=== PATIENT | male | born 1975 | race Caucasian/White ===

== ENCOUNTER 2019-08-28 02:02 | Emergency (ER) | payer BC, SELFPAY ==
[2019-08-28 02:06] VITALS: BP 153/96; PULSE 80; RESP 18; TEMP 36.6; O2SAT 98; BMI 33.9
--- NOTE | 2019-08-28 02:08 | ED_ITS ---
Entered by Janet Lofton, acting as scribe for Kerry Helton MD HPI - Abdominal Pain General: Chief Complaint: Abdominal Pain Stated Complaint: ABD PAIN Time Seen by Provider: 08/28/19 02:07 Source: patient Mode of arrival: ambulatory Limitations: no limitations History of Present Illness: HPI narrative: 43 yo m came to the er pov with for abd pain. Onset was last night. Pt states that he has had some ulcers and deverticulitis is the past. Pt is having pain right above the belly button. Pt said that it feels like that he needs to burp and that he needs to have a bowel movement as well. Pt denies any nausea or vomiting at this time. MD elicited complaint: abdominal pain Pertinent past history: diverticulitis and other (ulcers) Onset (ago): day(s) (last night) Pain Consistency: constant Location: Epigastric Severity: moderate Quality: sharp Radiation: none Migration to: no migration Relieving factors: nothing Associated Symptoms: Reports no associated symptoms and nausea; Denies chills, diarrhea, dysuria, fever(s) and vomiting Related Data: Patient : No Review of Systems General: Reports: other (negative unless marked) Const: Denies: fever, chills, body aches or change in appetite Eyes: Denies: blurry vision or eye discomfort ENMT: Denies: throat pain or dental pain Card: Denies: chest pain Resp: Denies: shortness of breath GI: Reports: abdominal pain and nausea; Denies: vomiting or diarrhea : Denies: painful urination Musc: Denies: neck pain or back pain Skin/Breast: Denies: rash Neuro: Denies: headache Psych: Denies: depression Master/Lymph: Denies: easy bruising All/Imm: Denies: hives PFSH ED PFSH: Social History Smoking and tobacco status: former smoker Physical Exam Const: COMMON NORMALS: no apparent distress, oriented x3 and healthy appearing HENMT: COMMON NORMALS: normocephalic and head/scalp atraumatic HEAD & SCALP: normocephalic and atraumatic Eye: COMMON NORMALS: PERRL and EOMs intact bilaterally PUPIL: Yes PERRL Neck/C-Spine: COMMON NORMALS: full ROM and supple Chest: COMMONS NORMALS: inspection of chest normal and palpation of chest normal Resp: COMMON NORMALS: normal respiratory effort, no retractions, no use of accessory muscles and clear to auscultation bilaterally AUSCULTATION: clear to auscultation bilaterally Cardio: COMMON NORMALS: regular rate, regular rhythm and no murmurs RATE: regular rate RHYTHM: regular rhythm GI: COMMON NORMALS: normal to inspection, nondistended, normoactive bowel sounds, soft to palpation, non-tender and no masses PALPATION: Yes soft Extremity: COMMON NORMALS: normal to inspection and full ROM Neuro: COMMON NORMALS: oriented x3, moves all extremities and no focal motor deficits Psych: COMMON NORMALS: mental status grossly normal, thought process normal and cooperative THOUGHT PROCESS: normal thought process Skin: COMMON NORMALS: no rashes or lesions noted and no wounds GENERAL SKIN EXAM: no rashes or lesions noted Course Vital Signs: Vital signs: Vital Signs Temperature 97.9 F 08/28/19 02:06 Pulse Rate 80 08/28/19 02:06 Respiratory Rate 18 08/28/19 03:22 Blood Pressure 153/96 08/28/19 02:06 Pulse Oximetry 98 08/28/19 02:06 MDM - Abdominal Pain MDM Narrative: Medical decision making narrative: Patient presents with gallstones likely causing abdominal pain. He has no signs of cholecystitis on ultrasound. Patient's lab work here is normal as well. His pain is since resolved and he has no right upper quadrant tenderness. Patient is stable for discharge and is to follow-up with surgeon in 3 to 5 days. He is return if worsening. Lab Data: Labs: Lab Results 08/28/19 08/28/19 Range/Units 02:10 02:10 WBC 8.9 (4.0-10.0) 10^3/ uL RBC 5.22 (4.1-5.3) 10^6/u L Hgb 16.3 (11.7-16.6) g/dL Hct 47.3 (42.0-52.0) % MCV 90.6 (80-94) fL MCH 31.2 (28.0-34.0) pg MCHC 34.5 (30.0-36.0) g/dL RDW 12.9 (12.1-15.1) % Plt Count 204 (130-400) 10^3/c mm MPV 10.8 H (7.4-10.4) fL Neut % (Auto) 43.8 % Lymph % (Auto) 44.7 % [place] % (Auto) 8.0 % Eos % (Auto) 2.4 % Baso % (Auto) 0.9 % Neut # (Auto) 3.9 (1.8-7.7) 10^3/u L Lymph # (Auto) 4.0 (0.8-4.8) 10^3/u L [place] # (Auto) 0.7 (0.2-0.9) 10^3/u L Eos # (Auto) 0.2 (0.0-0.8) 10^3/u L Baso # (Auto) 0.1 (0.0-0.1) 10^3/u L Nucleated RBC % (a uto) 0 % Nucleated RBCs # 0.0 /100WBC Sodium 139 (136-145) mmol/L Potassium 3.7 (3.5-5.1) mmol/L Chloride 101 (98-107) mmol/L Carbon Dioxide 28 (22-29) mmol/L Anion Gap 13.7 (5-19) BUN 16 (6-20) mg/dL Creatinine 1.2 (0.7-1.2) mg/dL GFR Calculation 65.8 L (90-130) mL/min Glucose 107 (65-115) mg/dL Calculated Osmolal ity 285 (285-295) mOsm/k g Calcium 10.1 (8.5-10.5) mg/dL Total Bilirubin 0.7 (0.15-1.2) mg/dL AST 47 H (0-40) U/L ALT 38 (0-41) U/L Alkaline Phosphata se 49 (40-130) IU/L Total Protein 7.8 (6.6-8.7) g/dL Albumin 4.7 (3.5-5.2) g/dL Globulin 3.1 (1.3-4.6) g/dL Lipase 60 (13-60) U/L Imaging Data ^: CT Abd/Pel: Radiologist's impression: CT Scan Report Signed Patient: Adán Segal Unit #: [id number] : 1975 Age/Sex: 43 / M ADM Date: 08/28/19 Loc: ER Room/Bed: Attending Dr: Ordering Provider/Ordering MD: Kerry Helton MD Date of Service: 08/28/19 Procedure(s): CT abdomen pelvis w con* [id number] Accession Number(s): [id number] Report Number: [id number] PROCEDURE INFORMATION: Exam: CT Abdomen And Pelvis With Contrast Exam date and time: 08/28/2019 3:15 AM Age: 43 years old Clinical indication: Abdominal pain; Epigastric; Additional info: Abd pain TECHNIQUE: Imaging protocol: Computed tomography of the abdomen and pelvis with intravenous contrast. Total DLP: 1710.84 mGy-cm Radiation optimization: All CT scans at this facility use at least one of these dose optimization techniques: automated exposure control; mA and/or kV adjustment per patient size (includes targeted exams where dose is matched to clinical indication); or iterative reconstruction. Contrast material: OMNI 300; Contrast volume: 95 ml; Contrast route: 18G; COMPARISON: US gall bladder [id number] 05/30/2017 7:19 AM FINDINGS: Lungs: There are several noncalcified nodules in the right lung base measuring up to 6 mm. Liver: The liver is normal. Gallbladder and bile ducts: The gallbladder is elongated. There is a large radiolucent stone in the distal gallbladder lumen, similar to the findings on ultrasound in 2017. There is thickening and mucosal hyperenhancement of the gallbladder fundus beyond the stone. Pancreas: Click biliary The pancreas is unremarkable. Spleen: The spleen is mildly enlarged. Adrenals: The adrenal glands are unremarkable. Kidneys and ureters: There is a nonobstructive stone in the right kidney. There is no hydronephrosis or ureteral dilation. The left kidney and ureter are unremarkable. Stomach and bowel: The stomach is unremarkable. The small bowel is nondilated. There is no sign of inflammation. The colon is unremarkable. The stomach is unremarkable. The small bowel is nondilated. There is no sign of inflammation. The colon is unremarkable. Appendix: The appendix is normal. The appendix is normal. The appendix is normal. Intraperitoneal space: There is no free air or significant intraperitoneal free fluid. Vasculature: There is mild aortic atherosclerotic disease. There is mild aortic atherosclerotic disease. Lymph nodes: There is no lymphadenopathy in the retroperitoneum, mesentery, pelvis or inguinal regions. There is no lymphadenopathy in the retroperitoneum, mesentery, pelvis or inguinal regions. Bladder: The urinary bladder is unremarkable. Reproductive: The prostate and seminal vesicles are unremarkable. Bones/joints: Bones are unremarkable. Soft tissues: The abdominal wall is intact. CT/CT abdomen pelvis w con* [id number] IMPRESSION: 1. Cholelithiasis with thickening of the gallbladder fundal wall. Possible chronic cholecystitis or adenomyomatosis. Recommend ultrasound follow-up. 2. Nonobstructive right nephrolithiasis. 3. Right lower lobe pulmonary nodules measuring up to 6 mm. For patients at low risk (minimal or absent history of smoking and of other known risk factors), no routine follow-up is indicated. For patients at high risk (history of smoking or of other known risk factors), consider optional CT at 12 months. (Tenzin et al., Fleischner Society, 2017) gb: My impression: Gallstones with no signs of cholecystitis Discharge Plan Discharge Patient Disposition: Home, Self-Care Clinical Impression: Gall stones Condition: Stable Prescriptions: [place] 5-325 mg tablet 1 tab PO Q6H PRN (Reason: pain) Qty: 14 RF: 0 Zofran 4 mg tablet 4 mg PO QID PRN (Reason: nausea and vomiting) Qty: 14 RF: 0 Discharge Orders: Discharge Order (Routine); Ordered 08/28/19 Ordered By: Kerry Helton Referrals: Giancarlo Johns MD [Physician] - Discharge Diet: Advance as tolerated Discharge Activity: Resume usual activity Patient Instructions: Biliary Colic (ED) Coding Level of Care Code ED Quality Specialist for [facility] Fwd The documentation recorded by the Rolly conway Stephanie Lyn, accurately reflects the service I personally performed and the decisions made by Sunitha vogel Korby, MD Aug 28, 2019 02:02
[2019-08-28] MEDS: ondansetron 2 mg/ML SDV 2 mL 4 MG IVP (02:16)
[2019-08-28] MEDS: lidocaine 2% viscous 15 ML, aluminum-mag hydrox-simethicon 30 ML, sucralfate oral liq 1 GM PO (02:21)
[2019-08-28 02:47] LABS: Basophils # 0.1 10^3/uL (0.0-0.1); Basophils % 0.9 %; Eosinophils # 0.2 10^3/uL (0.0-0.8); Eosinophils % 2.4 %; Hematocrit 47.3 % (42.0-52.0); Hemoglobin 16.3 g/dL (11.7-16.6); Lymphocytes % 44.7 %; Mean Corpuscular HGB Conc 34.5 g/dL (30.0-36.0); Mean Corpuscular Hemoglobin 31.2 pg (28.0-34.0); Mean Corpuscular Volume 90.6 fL (80-94); Mean Platelet Volume 10.8 fL (7.4-10.4); Monocytes # 0.7 10^3/uL (0.2-0.9); Neutrophils # 3.9 10^3/uL (1.8-7.7); Neutrophils % 43.8 %; Nucleated Red Blood Cells % 0 %; Platelet Count 204 10^3/cmm (130-400); Red Blood Count 5.22 10^6/uL (4.1-5.3); Red Cell Distribution Width 12.9 % (12.1-15.1); White Blood Count 8.9 10^3/uL (4.0-10.0)
[2019-08-28 03:01] LABS: Alanine Aminotransferase 38 U/L (0-41); Albumin Level 4.7 g/dL (3.5-5.2); Alkaline Phosphatase 49 IU/L (40-130); Anion Gap 13.7 (5-19); Aspartate Amino Transferase 47 U/L (0-40); Blood Urea Nitrogen 16 mg/dL (6-20); Calcium 10.1 mg/dL (8.5-10.5); Carbon Dioxide 28 mmol/L (22-29); Chloride 101 mmol/L (98-107); Globulin 3.1 g/dL (1.3-4.6); Glomerular Filtration Rate 65.8 mL/min (90-130); Glucose 107 mg/dL (65-115); Lipase 60 U/L (13-60); Osmolality Calculated 285 mOsm/kg (285-295); Potassium 3.7 mmol/L (3.5-5.1); Sodium 139 mmol/L (136-145); Total Bilirubin 0.7 mg/dL (0.15-1.2); Total Protein 7.8 g/dL (6.6-8.7)
--- NOTE | 2019-08-28 03:06 | CTR_ITS ---
PROCEDURE INFORMATION: Exam: CT Abdomen And Pelvis With Contrast Exam date and time: 08/28/2019 3:15 AM Age: 43 years old Clinical indication: Abdominal pain; Epigastric; Additional info: Abd pain TECHNIQUE: Imaging protocol: Computed tomography of the abdomen and pelvis with intravenous contrast. Total DLP: 1710.84 mGy-cm Radiation optimization: All CT scans at this facility use at least one of these dose optimization techniques: automated exposure control; mA and/or kV adjustment per patient size (includes targeted exams where dose is matched to clinical indication); or iterative reconstruction. Contrast material: OMNI 300; Contrast volume: 95 ml; Contrast route: 18G; COMPARISON: US gall bladder [id number] 05/30/2017 7:19 AM FINDINGS: Lungs: There are several noncalcified nodules in the right lung base measuring up to 6 mm. Liver: The liver is normal. Gallbladder and bile ducts: The gallbladder is elongated. There is a large radiolucent stone in the distal gallbladder lumen, similar to the findings on ultrasound in 2017. There is thickening and mucosal hyperenhancement of the gallbladder fundus beyond the stone. Pancreas: Click biliary The pancreas is unremarkable. Spleen: The spleen is mildly enlarged. Adrenals: The adrenal glands are unremarkable. Kidneys and ureters: There is a nonobstructive stone in the right kidney. There is no hydronephrosis or ureteral dilation. The left kidney and ureter are unremarkable. Stomach and bowel: The stomach is unremarkable. The small bowel is nondilated. There is no sign of inflammation. The colon is unremarkable. The stomach is unremarkable. The small bowel is nondilated. There is no sign of inflammation. The colon is unremarkable. Appendix: The appendix is normal. The appendix is normal. The appendix is normal. Intraperitoneal space: There is no free air or significant intraperitoneal free fluid. Vasculature: There is mild aortic atherosclerotic disease. There is mild aortic atherosclerotic disease. Lymph nodes: There is no lymphadenopathy in the retroperitoneum, mesentery, pelvis or inguinal regions. There is no lymphadenopathy in the retroperitoneum, mesentery, pelvis or inguinal regions. Bladder: The urinary bladder is unremarkable. Reproductive: The prostate and seminal vesicles are unremarkable. Bones/joints: Bones are unremarkable. Soft tissues: The abdominal wall is intact. CT/CT abdomen pelvis w con* [id number] IMPRESSION: 1. Cholelithiasis with thickening of the gallbladder fundal wall. Possible chronic cholecystitis or adenomyomatosis. Recommend ultrasound follow-up. 2. Nonobstructive right nephrolithiasis. 3. Right lower lobe pulmonary nodules measuring up to 6 mm. For patients at low risk (minimal or absent history of smoking and of other known risk factors), no routine follow-up is indicated. For patients at high risk (history of smoking or of other known risk factors), consider optional CT at 12 months. (Tenzin et al., Fleischner Society, 2017) Radiation Dose CTDIVOL = (mGy): DLP = 1710.84 (mGy-cm)
[2019-08-28 03:22] VITALS: RESP 18
[2019-08-28] MEDS: morphine 4 mg/mL SDV 1 mL IVP (03:22)
[2019-08-28] MEDS: iohexol 300 mg/mL 100 mL Btl IV (03:42)
--- NOTE | 2019-08-28 04:35 | US_ITS ---
WS: [id number] ULTRASOUND ABDOMEN LIMITED CLINICAL INFORMATION: abd pain COMPARISON: None. FINDINGS: Liver Size: Normal. Craniocaudal length: 14.9 cm. Echogenicity: Normal. Surface nodularity: None. Mass (size and location): None. Bile ducts Intrahepatic ducts: Normal. Common bile duct diameter: 0.5 cm. Gallbladder Cholelithiasis Gallstones: Present in the fundus Gallbladder sludge: None. Gallbladder wall thickening: Mild thickening at the fundus Pericholecystic fluid: None. Sonographic Mejias sign: Absent. Pancreas Normal as visualized. Right kidney: Normal. Hydronephrosis: None. Size: 12.3 cm x 6.3 cm x 6.3 cm. Abdominal aorta and IVC Visualized portions are normal. Ascites: None. 1. Cholelithiasis with gallstones in the fundus. Mild thickening of the gallbladder fundus. No peric holecystic: fluid. Gallbladder function could be further evaluated with HIDA scan. Normal common bile duct. 2. Normal liver. 3. No hydronephrosis right kidney US/US gall bladder [id number] IMPRESSION:
[2019-08-28 05:45] VITALS: BP 117/73; PULSE 59; RESP 18; O2SAT 96
--- NOTE | 2019-08-29 10:50 | DCPLANNER ---
manager cleaning had message to schedule a follow up appointment for patient with [facility]. manager cleaning called the clinic, spoke with Lorna, gave clinic patients information. manager cleaning was told that a follow up appointment is scheduled for Monday, September 02, 2019 at 11:[address] Johns. Clinic will call patient with appointment information.
--- NOTE | 2019-09-03 11:39 | DCPLANNER ---
Appointment scheduled for 09.02.19 was cancelled by patient.
== END 2019-08-28 05:45 | disposition home or self-care (01) ==
PROVIDERS: Emergency Provider Emergency Medicine
DX: K80.20 Calculus of gallbladder without cholecystitis without obstruction (principal); Z87.891 Personal history of nicotine dependence
CPT/HCPCS: 12345; 36415; 74177; 76705; 80053; 83690; 85025; 96374; 96375; 99282; 99284; J2270; J2405; Q9967

== ENCOUNTER 2022-06-03 15:51 | Emergency (ER) | payer OTHER, SELFPAY ==
[2022-06-03 16:02] VITALS: BP 156/105; PULSE 93; RESP 16; TEMP 36.8; O2SAT 97; BMI 35.2
--- NOTE | 2022-06-03 16:17 | XRR_ITS ---
PROCEDURE INFORMATION: Exam: XR Chest Exam date and time: 06/03/2022 4:27 PM Age: 46 years old Clinical indication: Shortness of breath; Additional info: Tachycardia; Shortness of breath TECHNIQUE: Imaging protocol: Radiologic exam of the chest. Views: 1 view. COMPARISON: CT abdomen pelvis w con* [id number] 08/28/2019 3:54 AM FINDINGS: Lungs: Unremarkable. No consolidation. Pleural spaces: Unremarkable. No pleural effusion. No pneumothorax. Heart/Mediastinum: Unremarkable. No cardiomegaly. Bones/joints: Unremarkable. XR/XR chest 1V portable [id number] IMPRESSION: No acute findings.
--- NOTE | 2022-06-03 16:18 | ECG_ITS ---
[facility] Test Date: 2022-06-03 Pat Name: Adná Segal Department: Room: Gender: Male [employer] Attendant: : 1975 Requested By: Yasir Huber Order Number: [id number] Nadine MD: Clement Watson M.D. Measurements Intervals [place] Rate: 80 P: 42 SD: 155 QRS: 29 QRSD: 106 T: 51 QT: 354 QTc: 409 Interpretive Statements SINUS RHYTHM WITH SINUS ARRHYTHMIA INDETERMINATE AXIS No previous ECG available for comparison Electronically Signed On 06-03-2022 23:51:19 [employer] by Clement Watson M.D. [id number]
--- NOTE | 2022-06-03 16:18 | ED_ITS ---
HPI - Arrhythmia/Palpitations General: Chief Complaint: Arrhythmia/Palpitations Stated Complaint: chest pain Time Seen by Provider: 06/03/22 16:08 Source: patient Mode of arrival: ambulatory Limitations: no limitations History of Present Illness: See nursing assessment. Patient with dyspnea on exertion, diaphoresis and anxiety earlier this afternoon. He went to local clinic and had work-up there that showed Q waves on his EKG. Patient was sent here for evaluation. Patient states he feels fine now except he did have mild shortness of breath while walking into the ER. He denies any chest pain at any point. Reportedly his heart rate was up into the 120s earlier today. He also had tingling going down his left upper extremity. He became diaphoretic for a while. He thought he was having a panic attack but was not sure if that was the case or not. He does have a past medical history of panic attacks and borderline hypertension for the past month. States he did take 3 baby aspirin today. He also took an old Ativan tablet. Only medication he routinely takes his nicotine lozenge. Denies any allergies to medication. Denies tobacco use. He drinks alcohol socially. He drinks approximately 6-7 caffeinated drinks per day. Associated symptoms: Reports anxiety and diaphoresis; Deny nausea, syncope or vomiting Review of Systems Const: Reports: fatigue and diaphoresis; Denies: fever(s), chills or body aches Eyes: Denies: change in vision ENMT: Denies: throat pain Card: Reports: palpitations and dyspnea on exertion; Denies: chest pain or syncope Resp: Denies: non-productive cough or wheezing GI: Denies: abdominal pain, nausea or vomiting : Denies: flank pain Musc: Denies: neck pain or back pain Skin/Breast: Denies: rash or pruritus Neuro: Denies: headache(s) or numbness in extremities Psych: Reports: anxiety Master/Lymph: Denies: enlarged lymph nodes PFSH ED PFSH: Social History Smoking and tobacco status: former smoker Physical Exam Const: COMMON NORMALS: no acute distress, patient oriented x3, no limitations and well nourished GENERAL APPEARANCE: cooperative HENMT: COMMON NORMALS: normocephalic and atraumatic HEAD & SCALP: normocephalic and atraumatic FACE & SINUS: normal facial exam Eye: COMMON NORMALS: EOMs intact bilaterally Neck/C-Spine: COMMON NORMALS: full ROM, no lymphadenopathy, supple and no meningeal signs GENERAL: Yes normal visual inspection Lymph: LYMPHATIC: no lymphadenopathy noted Chest: COMMONS NORMALS: normal inspection of the chest and normal palpation of entire chest wall CHEST: No Ecchymosis present and No rash Resp: COMMON NORMALS: normal respiratory effort, No retractions and clear to auscultation bilaterally EFFORT & INSPECTION: No respiratory distress AUSCULTATION: clear to auscultation bilaterally Cardio: COMMON NORMALS: regular rate, regular rhythm and Peripheral pulses 2+ throughout JUGULAR VENOUS DISTENTION: no JVD RATE: regular rate RHYTHM: regular rhythm PERIPHERAL PULSES: Peripheral pulses 2+ throughout GI: COMMON NORMALS: Normal to inspection, nondistended, normoactive bowel sounds present and non-tender : COMMON NORMALS: Yes no CVA tenderness BLADDER/KIDNEY EXAM: Yes no CVA tenderness Back/Pelvis: COMMON NORMALS: no CVA tenderness Extremity: COMMON NORMALS: normal to inspection, full ROM and capillary refill normal Neuro: COMMON NORMALS: patient oriented x3, CN's II-XII intact bilaterally, no focal motor deficits and no sensory deficits noted MENINGEAL SIGNS: Yes no me ningeal signs Psych: COMMON NORMALS: mental status grossly normal and Normal thought process present THOUGHT PROCESS: Normal thought process present Skin: COMMON NORMALS: no rashes or lesions noted and no wounds GENERAL SKIN EXAM: no rashes or lesions noted Course Vital Signs: Vital signs: Vital Signs Temperature 98.3 F 06/03/22 16:02 Pulse Rate 82 06/03/22 17:32 Respiratory Rate 16 06/03/22 16:02 Blood Pressure 133/88 06/03/22 17:23 Pulse Oximetry 97 06/03/22 17:32 Oxygen Delivery Me thod 06/03/22 17:32 MDM - Arrhythmia/Palpitations Medical Decision Making Panic attack versus sinus tachycardia versus other arrhythmia. Patient does have high caffeine use history. 1741: Patient states he is feeling well. He states he has mild fatigue. I did discuss with him that he will need to avoid caffeine from this point on. This will help his palpitations and borderline hypertension. 0: Vital signs are normal. Heart rate is now normal. Patient is feeling well. Will have patient follow-up with primary care doctor for Holter monitor. Advised patient to discontinue caffeine use and eat low-sodium diet Lab Data 06/03/22 16:13 06/03/22 16:13 Radiology Impressions Chest X-Ray 06/03/22 16:17 IMPRESSION: No acute findings. Laboratory Results WBC 9.0 10^3/uL (4.0-10.0) 06/03/22 16:13 RBC 4.94 10^6/uL (4.1-5.3) 06/03/22 16:13 Hgb 16.6 g/dL (11.7-16.6) 06/03/22 16:13 Hct 47.6 % (42.0-52.0) 06/03/22 16:13 MCV 96.4 fl (80-94) H 06/03/22 16:13 MCH 33.6 pg (28.0-34.0) 06/03/22 16:13 MCHC 34.9 g/dL (30.0-36.0) 06/03/22 16:13 RDW 13.5 % (12.1-15.1) 06/03/22 16:13 Plt Count 176 10^3/cmm (130-400) 06/03/22 16:13 MPV 10.2 fL (7.4-10.4) 06/03/22 16:13 Neut % (Auto) 66.1 % 06/03/22 16:13 Lymph % (Auto) 24.4 % 06/03/22 16:13 Williamson % (Auto) 6.4 % 06/03/22 16:13 Eos % (Auto) 1.6 % 06/03/22 16:13 Baso % (Auto) 1.1 % 06/03/22 16:13 Neut # (Auto) 5.93 10^3/uL (1.8-7.7) 06/03/22 16:13 Lymph # (Auto) 2.2 10^3/uL (0.8-4.8) 06/03/22 16:13 Williamson # (Auto) 0.6 10^3/uL (0.2-0.9) 06/03/22 16:13 Eos # (Auto) 0.1 10^3/uL (0.0-0.8) 06/03/22 16:13 Baso # (Auto) 0.1 10^3/uL (0.0-0.1) 06/03/22 16:13 Nucleated RBC % (auto) 0 % 06/03/22 16:13 Nucleated RBCs # 0.0 /100WBC 06/03/22 16:13 Sodium 141 mmol/L (136-145) 06/03/22 16:13 Potassium 3.9 mmol/L (3.5-5.1) 06/03/22 16:13 Chloride 104 mmol/L (98-107) 06/03/22 16:13 Carbon Dioxide 28 mmol/L (22-29) 06/03/22 16:13 Anion Gap 12.9 (5-19) 06/03/22 16:13 BUN 10 mg/dL (6-20) 06/03/22 16:13 Creatinine 0.9 mg/dL (0.7-1.2) 06/03/22 16:13 GFR Calculation 90.4 mL/min (90-130) 06/03/22 16:13 Glucose 98 mg/dL (65-115) 06/03/22 16:13 Calculated Osmolality 291 mOsm/kg (285-295) 06/03/22 16:13 Calcium 9.5 mg/dL (8.5-10.5) 06/03/22 16:13 Magnesium 2.0 mg/dL (1.7-2.3) 06/03/22 16:13 Troponin T Baseline 6 ng/L (0-15) 06/03/22 16:13 Troponin T 120 Minute 6.00 ng/L (0-15) 06/03/22 17:50 Delta Troponin T 0 ABS# (0-10) 06/03/22 17:50 NT-Pro-B Natriuret Pep 5 pg/mL (0-125) 06/03/22 16:13 TSH 1.54 uIU/mL (0.27-4.20) 06/03/22 16:13 Imaging Data CXR: My impression: Nothing acute. No infiltrates, pneumothorax, or effusions. Radiologist's impression: PROCEDURE INFORMATION: Exam: XR Chest Exam date and time: 06/03/2022 4:27 PM Age: 46 years old Clinical indication: Shortness of breath; Additional info: Tachycardia; Shortness of breath TECHNIQUE: Imaging protocol: Radiologic exam of the chest. Views: 1 view. COMPARISON: CT abdomen pelvis w con* [id number] 08/28/2019 3:54 AM FINDINGS: Lungs: Unremarkable. No consolidation. Pleural spaces: Unremarkable. No pleural effusion. No pneumothorax. Heart/Mediastinum: Unremarkable. No cardiomegaly. Bones/joints: Unremarkable. XR/XR chest 1V portable [id number] IMPRESSION: No acute findings. ? Dictated By: Teddy Martin Signed By: Teddy Martin Signed Date/Time: 06/03/22 1654 EKG Data EKG 1: I personally reviewed and interpreted this EKG as follows: EKG interpretation date: 06/03/22 EKG interpretation time: 16:35 Prior EKG tracings: not available for review Interpretation: Impression normal sinus rhythm with sinus arrhythmia heart rate 80. Normal axis. Normal LA interval. There are Q waves in lead III only. Normal QRS. Normal ST segment. Normal QT interval. Other EKG comments: Chest X-Ray 06/03/22 16:17 IMPRESSION: No acute findings. EKG 2: I personally reviewed and interpreted this EKG as follows: EKG interpretation date: 06/03/22 EKG interpretation time: 18:29 Prior EKG tracings: available for review Interpretation: Impression normal sinus rhythm. Heart rate 73. Normal axis, normal QRS, normal ST segment, normal QT interval, normal LA interval. Normal P waves, normal T waves. Normal EKG. Other EKG comments: Chest X-Ray 06/03/22 16:17 IMPRESSION: No acute findings. Discharge Plan Discharge Patient Disposition: Home Clinical Impression: Palpitations, Anxiety, Supraventricular tachycardia Condition: Stable Prescriptions: No Action Zyrtec 10 mg Tablet 10 mg PO DAILY PRN (Reason: Allergy Symptoms) Aspir-81 81 mg Tablet,Delayed Release (Dr/Ec) 81 mg PO QAM lorazepam 0.5 mg Tablet 0.5 mg PO .ONCE nicotine (polacrilex) 2 mg Lozenge 2 mg BUCCAL Q4H PRN (Reason: Smoking Cessation) Discharge Orders: Discharge ED (Routine); Ordered 06/03/22 Ordered By: Yasir Soler Discharge Diet: Low Salt Discharge Activity: Increase activity as tolerated Patient Instructions: Heart Palpitations (ED) Activity Restrictions/Additional Instructions: Avoid caffeine or any other stimulants. Avoid energy drinks. Eat low-sodium diet. Follow-up with your family doctor next week to arrange Holter monitor which will monitor your heart rate for an extended period of time. Return if symptoms worsen. Coding Level of Care Code ED Job Press Operator for Rahul Fwankush History Comprehensive Exam Comprehensive Medical Decision Making Moderate Complexity
[2022-06-03 16:30] LABS: Basophils # 0.1 10^3/uL (0.0-0.1); Basophils % 1.1 %; Eosinophils # 0.1 10^3/uL (0.0-0.8); Eosinophils % 1.6 %; Hematocrit 47.6 % (42.0-52.0); Hemoglobin 16.6 g/dL (11.7-16.6); Lymphocytes # 2.2 10^3/uL (0.8-4.8); Lymphocytes % 24.4 %; Mean Corpuscular HGB Conc 34.9 g/dL (30.0-36.0); Mean Corpuscular Hemoglobin 33.6 pg (28.0-34.0); Mean Corpuscular Volume 96.4 fl (80-94); Mean Platelet Volume 10.2 fL (7.4-10.4); Monocytes # 0.6 10^3/uL (0.2-0.9); Monocytes % 6.4 %; Neutrophils # 5.93 10^3/uL (1.8-7.7); Neutrophils % 66.1 %; Nucleated Red Blood Cells % 0 %; Platelet Count 176 10^3/cmm (130-400); Red Blood Count 4.94 10^6/uL (4.1-5.3); Red Cell Distribution Width 13.5 % (12.1-15.1)
[2022-06-03 16:53] VITALS: BP 142/94; PULSE 88; O2SAT 97
[2022-06-03 17:04] LABS: Troponin(5th) Baseline 6 ng/L (0-15)
[2022-06-03 17:14] LABS: Anion Gap 12.9 (5-19); Blood Urea Nitrogen 10 mg/dL (6-20); Calcium 9.5 mg/dL (8.5-10.5); Carbon Dioxide 28 mmol/L (22-29); Chloride 104 mmol/L (98-107); Glomerular Filtration Rate 90.4 mL/min (90-130); Glucose 98 mg/dL (65-115); NT Pro B Type Natriuretic Pept 5 pg/mL (0-125); Osmolality Calculated 291 mOsm/kg (285-295); Potassium 3.9 mmol/L (3.5-5.1); Sodium 141 mmol/L (136-145); Thyroid Stimulating Hormone 1.54 uIU/mL (0.27-4.20)
[2022-06-03 17:23] VITALS: BP 133/88; PULSE 79; O2SAT 96
[2022-06-03 17:32] VITALS: PULSE 82; O2SAT 97
--- NOTE | 2022-06-03 18:18 | ECG_ITS ---
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 Measurements Intervals [place] Rate: 73 P: 47 OR: 163 QRS: 39 QRSD: 102 T: 59 QT: 371 QTc: 411 Interpretive Statements SINUS RHYTHM INDETERMINATE AXIS Compared to ECG 06/03/2022 16:33:14 Sinus arrhythmia no longer present Electronically Signed On 06-03-2022 23:52:25 ENDOCRINOLOGIST by Clement Watson M.D. [id number]
[2022-06-03 19:02] LABS: Troponin 5 2HR Delta 0 ABS# (0-10)
[2022-06-03 19:22] VITALS: BP 136/92; PULSE 86; RESP 18; O2SAT 95
== END 2022-06-03 19:24 | disposition home or self-care (01) ==
PROVIDERS: Emergency Provider Family Medicine
DX: I47.1 Supraventricular tachycardia (principal); F41.9 Anxiety disorder, unspecified; R00.2 Palpitations; Z79.82 Long term (current) use of aspirin; Z87.891 Personal history of nicotine dependence
CPT/HCPCS: 36415; 71045; 80048; 83735; 83880; 84443; 84484; 85025; 93005; 99285

== ENCOUNTER 2022-10-03 16:00 | Outpatient (CLI) | payer OTHER, SELFPAY | END 2022-10-03 16:01 | disposition home or self-care (01) | LOC: SLEEP 10-05 11:30 | PROVIDERS: Visit Provider Family Medicine | DX: R06.03 Acute respiratory distress (principal); R53.83 Other fatigue; G47.33 Obstructive sleep apnea (adult) (pediatric) | CPT/HCPCS: G0399 ==

== ENCOUNTER 2024-09-10 14:52 | Emergency (ER) | payer OTHER, SELFPAY ==
[2024-09-10 15:24] VITALS: BP 118/81; PULSE 65; RESP 17; TEMP 36.3; O2SAT 99; BMI 35.2
[2024-09-10 15:43] VITALS: BP 144/90; PULSE 73; RESP 16; O2SAT 98
--- NOTE | 2024-09-10 15:45 | CTR_ITS ---
PROCEDURE INFORMATION: Exam: CT Head Without Contrast Exam date and time: 09/10/2024 4:00 PM Age: 48 years old Clinical indication: Dizziness TECHNIQUE: Imaging protocol: Computed tomography of the head without contrast. Radiation optimization: All CT scans at this facility use at least one of these dose optimization techniques: automated exposure control; mA and/or kV adjustment per patient size (includes targeted exams where dose is matched to clinical indication); or iterative reconstruction. COMPARISON: No relevant prior studies available. RADIATION DOSE METRICS: Total DLP (mGy-cm): 1060.38 FINDINGS: Brain: No intracranial hemorrhage or hematoma is seen. No mass effect or shift of midline structures. No findings to indicate territorial or large vessel ischemic infarct. Cerebral ventricles: No ventriculomegaly. Paranasal sinuses: Visualized sinuses are unremarkable. No fluid levels. Mastoid air cells: Visualized mastoid air cells are well aerated. Bones: Bone windows of the skull show no acute abnormality. Soft tissues: Unremarkable. CT/CT head wo con* [id number] IMPRESSION: No acute intracranial abnormality.
--- NOTE | 2024-09-10 15:45 | XR_ITS ---
WS: [id number] Exam: XR chest 1V portable [id number] Date/Time of Exam: 09/10/2024 4:01 PM Reason For Exam: dizziness Comparison 06/03/2022. Findings: The lungs are clear and fully expanded. Costophrenic angles are sharp. No infiltrates. Bronchovascular relief appears normal. Cardiac silhouette is unremarkable. Bony elements are intact. XR/XR chest 1V portable [id number] IMPRESSION: Unremarkable chest radiograph.
--- NOTE | 2024-09-10 15:45 | ECG_ITS ---
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 Measurements Intervals [place] Rate: 63 P: 44 HI: 176 QRS: 14 QRSD: 100 T: 57 QT: 406 QTc: 416 Interpretive Statements SINUS RHYTHM Compared to ECG 06/03/2022 18:25:26 Indeterminate axis no longer present Electronically Signed On 09-11-2024 12:32:23 CDT by Lisa Gupta M.D. [id number]
--- NOTE | 2024-09-10 15:52 | ED_ITS ---
HPI - Dizziness 2 General: Chief Complaint: Dizziness Stated Complaint: vertigo Time Seen by Provider: 09/10/24 15:32 Source: patient Mode of arrival: ambulatory Limitations: no limitations History of Present Illness: HPI Narrative: 48-year-old male states he has been havi ng vertigo over the last 2 to 3 days. States got worse today he states he is had dizziness upon standing and when trying to walk. States much better at rest he has had nausea as well. States he had a previous episode years ago of similar. Denies any slurred speech or weakness Associated symptoms: Reports nausea and vomiting; Denies chest pain, chills or headache(s) Related Data Home Medications ?Medication ?Instructions ?Recorded ?Confirmed aspirin 81 mg tablet,delayed 81 mg PO Q6H PRN Pain 09/10/24 release cetirizine 5 mg-pseudoephedrine ER 1 tab PO BID 09/10/24 120 mg tablet,extended release,12hr loratadine 10 mg tablet (Claritin) 10 mg PO DAILY PRN allergies 09/10/24 09/10/24 losartan 50 mg tablet 50 mg PO DAILY 09/10/2408/18 Previous Rx's ?Medication ?Instructions ?Recorded meclizine 50 mg tablet 50 mg PO BID PRN dizziness # 20 tabs 09/10/24 ondansetron 4 mg disintegrating 4 mg PO Q6H PRN nausea and 09/10/24 tablet vomiting #14 tabs Allergies Allergy/AdvReac Type Severity Reaction Status Date / Time No Known Allergies Allergy Verified 06/03/22 16:26 Review of Systems 2 Const: Denies: fever(s), chills, body aches or change in appetite Eyes: Denies: blurry vision or eye discomfort ENMT: Denies: throat pain or dental pain Card: Denies: chest pain Resp: Denies: dyspnea GI: Reports: nausea and vomiting; Denies: abdominal pain or diarrhea Musc: Denies: neck pain or back pain Skin/Breast: Denies: rash Neuro: Reports: dizziness; Denies: headache(s) PFSH ED 2 PFSH: Social History Smoking and tobacco/nicotine status: former use of tobacco/nicotine Physical Exam 2 Const: COMMON NORMALS: patient oriented x3 HENMT: COMMON NORMALS: normocephalic and atraumatic HEAD & SCALP: n ormocephalic and atraumatic Eye: COMMON NORMALS: Equal, round and reactive pupils present, EOMs intact bilaterally and conjunctivae normal CONJUNCTIVA: Yes conjunctivae normal P UPIL: Yes Equal, round and reactive pupils present OTHER: slight nystagmus when looking to the right Neck/C-Spine: COMMON NORMALS: full ROM and supple Chest: COMMONS NORMALS: normal inspection of the chest and normal palpation of entire chest wall Resp: COMMON NORMALS: normal respiratory effort, No retractions, No use of accessory muscles and clear to auscultation bilaterally AUSCULTATION: clear to auscultation bilaterally Cardio: COMMON NORMALS: regular rate, regular rhythm and No murmurs present (Cardio) RATE: regular rate RHYTHM: regular rhythm GI: COMMON NORMALS: Normal to inspection, nondistended, normoactive bowel sounds present, Soft to palpation, non-tender and no masses PALPATION: Yes Soft to palpation Extremity: COMMON NORMALS: normal to inspection and full ROM Neuro: COMMON NORMALS: patient oriented x3, moves all extremities and no focal motor deficits SPEECH: speech normal GAIT: Yes Normal gait present M OTOR EXAM: 5/5 motor strength present throughout Psych: COMMON NORMALS: mental status grossly normal, Normal thought process present and cooperative THOUGHT PROCESS: Normal thought process present Skin: COMMON NORMALS: no rashes or lesions noted and no wounds GENERAL SKIN EXAM: no rashes or lesions noted Course 2 Vital Signs: Vital signs: Vital Signs Temperature 97.3 F L 09/10/24 15:24 Pulse Rate 73 09/10/24 16:32 Respiratory Rate 16 09/10/24 16:32 Blood Pressure 144/90 09/10/24 15:58 Pulse Oximetry 98 09/10/24 16:32 Oxygen Delivery Me thod Room Air 09/10/24 15:24 MDM - Dizziness Medical Decision Making Patient presents here with vertigo is likely peripheral in nature his symptoms are much improved here after meclizine I had him ambulate he is ambulating without difficulty will prescribe him meclizine and Zofran for home head CT is normal he has no signs of stroke here I told him to return if worsening. Medical Records I reviewed the patient's medical records. Lab Data I reviewed the patient's lab results. 09/10/24 16:19 09/10/24 16:19 Radiology Impressions Chest X-Ray 09/10/24 15:45 IMPRESSION: Unremarkable chest radiograph. Head CT 09/10/24 15:45 IMPRESSION: No acute intracranial abnormality. Laboratory Results WBC 12.12 10^3/uL (3.29-11.43) H 09/10/24 16:19 RBC 4.79 10^6/uL (3.85-5.65) 09/10/24 16:19 Hgb 15.30 g/dL (11.27-16.99) 09/10/24 16:19 Hct 44.7 % (37-53) 09/10/24 16:19 MCV 93.3 fl (82-101) 09/10/24 16:19 MCH 31.9 pg (27-33) 09/10/24 16:19 MCHC 34.2 g/dL (30-55) 09/10/24 16:19 RDW 13.2 % (12.1-15.1) 09/10/24 16:19 Plt Count 189 10^3/cmm (157-399) 09/10/24 16:19 MPV 10.3 fL (7.4-10.4) 09/10/24 16:19 Neut % (Auto) 82.9 % 09/10/24 16:19 Lymph % (Auto) 10.9 % 09/10/24 16:19 [place] % (Auto) 4.2 % 09/10/24 16:19 Eos % (Auto) 1.0 % 09/10/24 16:19 Baso % (Auto) 0.8 % 09/10/24 16:19 Neut # (Auto) 10.04 10^3/uL (1.8-7.7) H 09/10/24 16:19 Lymph # (Auto) 1.3 10^3/uL (0.8-4.8) 09/10/24 16:19 [place] # (Auto) 0.5 10^3/uL (0.2-0.9) 09/10/24 16:19 Eos # (Auto) 0.1 10^3/uL (0.0-0.8) 09/10/24 16:19 Baso # (Auto) 0.1 10^3/uL (0.0-0.1) 09/10/24 16:19 Nucleated RBC % (auto) 0 % 09/10/24 16:19 Nucleated RBCs # 0.0 /100WBC 09/10/24 16:19 PT 13.30 SECONDS (12.1-14.9) 09/10/24 16:19 INR 0.95 (0.8-1.2) 09/10/24 16:19 Sodium 135 mmol/L (136-145) L 09/10/24 16:19 Potassium 4.2 mmol/L (3.5-5.1) 09/10/24 16:19 Chloride 98 mmol/L (98-107) 09/10/24 16:19 Carbon Dioxide 26 mmol/L (22-29) 09/10/24 16:19 Anion Gap 15.2 (5-19) 09/10/24 16:19 BUN 10 mg/dL (6-20) 09/10/24 16:19 Creatinine 1.0 mg/dL (0.7-1.2) 09/10/24 16:19 GFR Calculation 79.4 mL/min (90-130) L 09/10/24 16:19 Glucose 98 mg/dL (65-115) 09/10/24 16:19 Calculated Osmolality 279 mOsm/kg (285-295) L 09/10/24 16:19 Calcium 9.5 mg/dL (8.5-10.5) 09/10/24 16:19 Total Bilirubin 0.5 mg/dL (0.15-1.2) 09/10/24 16:19 AST 20 U/L (0-40) 09/10/24 16:19 ALT 21 U/L (0-41) 09/10/24 16:19 Alkaline Phosphatase 50 U/L (40-130) 09/10/24 16:19 Total Protein 7.3 g/dL (6.6-8.7) 09/10/24 16:19 Albumin 4.4 g/dL (3.5-5.2) 09/10/24 16:19 Globulin 2.9 g/dL (1.3-4.6) 09/10/24 16:19 All radiology interpretation(s) finalized by discharge EKG Data EKG 1: I personally reviewed and interpreted this EKG as follows: EKG interpretation date: 09/10/24 EKG interpretation time: 15:50 Interpretation: nsr hr [address] elevation qrs 100 qtc 413 Discharge Plan Discharge Patient Disposition: Home Clinical Impression: Vertigo Condition: Stable Prescriptions: New ondansetron 4 mg tablet,disintegrating 4 mg PO Q6H PRN (Reason: nausea and vomiting) Qty: 14 0RF meclizine 50 mg tablet 50 mg PO BID PRN (Reason: dizziness) Qty: 20 0RF No Action aspirin [Aspir-81] 81 mg Tablet,Delayed Release (Dr/Ec) 81 mg PO Q6H PRN (Reason: Pain) losartan 50 mg tablet 50 mg PO DAILY cetirizine-pseudoephedrine 5-120 mg tablet extended release 12 hr 1 tab PO BID loratadine [Claritin] 10 mg Tablet 10 mg PO DAILY PRN (Reason: allergies) Discharge Orders: Discharge ED (Routine); Ordered 09/10/24 Ordered By: Kerry Helton Discharge Diet: Advance as tolerated Discharge Activity: Resume usual activity Patient Instructions: Vertigo (ED), Benign Paroxysmal Positional Vertigo (ED) Print Language: Irish Coding Level of Care Code ED Glucose And Syrup Weigher for Javierg Jose NIH stroke score NIHSS Level Of Consciousness - 1a: 0 Level Of Consciousness Questions - 1b: Both Correct Level Of Consciousness Commands - 1c: Both Correct Best Gaze - 2: Normal Visual Mann - 3: No Visual Loss Facial Palsy - 4: Normal Motor Arm Right - 5: No Drift Motor Arm Left - 5: No Drift Motor Leg Right - 6: No Drift Motor Leg Left - 6: No Drift Limb Ataxia - 7: Absent Sensory - 8: Normal Best Language - 9: No Aphasia Dysarthia - 10: Normal Extinction And Inattention - 11: 0 Score Total Score: 0
[2024-09-10 15:58] VITALS: BP 144/90
--- NOTE | 2024-09-10 16:17 | PC.PHAR ---
Pts' pcp changed him from Zyrtec to Zyrtec D and pt did take a claritin today due to allergies being so bad, currently.
[2024-09-10 16:28] LABS: Basophils # 0.1 10^3/uL (0.0-0.1); Basophils % 0.8 %; Eosinophils # 0.1 10^3/uL (0.0-0.8); Hematocrit 44.7 % (37-53); Lymphocytes # 1.3 10^3/uL (0.8-4.8); Lymphocytes % 10.9 %; Mean Corpuscular HGB Conc 34.2 g/dL (30-55); Mean Corpuscular Hemoglobin 31.9 pg (27-33); Mean Corpuscular Volume 93.3 fl (82-101); Mean Platelet Volume 10.3 fL (7.4-10.4); Monocytes # 0.5 10^3/uL (0.2-0.9); Monocytes % 4.2 %; Neutrophils # 10.04 10^3/uL (1.8-7.7); Neutrophils % 82.9 %; Nucleated Red Blood Cells % 0 %; Platelet Count 189 10^3/cmm (157-399); Red Blood Count 4.79 10^6/uL (3.85-5.65); Red Cell Distribution Width 13.2 % (12.1-15.1); White Blood Count 12.12 10^3/uL (3.29-11.43)
[2024-09-10] MEDS: ondansetron 2 mg/ML SDV 2 mL 4 MG IVP (16:30)
[2024-09-10] MEDS: meclizine 25 mg tablet 50 MG PO (16:31)
[2024-09-10 16:32] VITALS: PULSE 73; RESP 16; O2SAT 98
[2024-09-10 16:40] LABS: INR 0.95 (0.8-1.2)
[2024-09-10 16:45] LABS: Alanine Aminotransferase 21 U/L (0-41); Albumin Level 4.4 g/dL (3.5-5.2); Alkaline Phosphatase 50 U/L (40-130); Anion Gap 15.2 (5-19); Aspartate Amino Transferase 20 U/L (0-40); Blood Urea Nitrogen 10 mg/dL (6-20); Calcium 9.5 mg/dL (8.5-10.5); Carbon Dioxide 26 mmol/L (22-29); Chloride 98 mmol/L (98-107); Creatinine Clr Calc Pharmacy 118.4689; Globulin 2.9 g/dL (1.3-4.6); Glomerular Filtration Rate 79.4 mL/min (90-130); Glucose 98 mg/dL (65-115); Osmolality Calculated 279 mOsm/kg (285-295); Potassium 4.2 mmol/L (3.5-5.1); Sodium 135 mmol/L (136-145); Total Bilirubin 0.5 mg/dL (0.15-1.2); Total Protein 7.3 g/dL (6.6-8.7)
== END 2024-09-10 17:25 | disposition home or self-care (01) ==
PROVIDERS: Emergency Provider Emergency Medicine
DX: R42 Dizziness and giddiness (principal); Z79.82 Long term (current) use of aspirin; Z87.891 Personal history of nicotine dependence
CPT/HCPCS: 36415; 70450; 71045; 80053; 85025; 85610; 93005; 96374; 99285; J2405; J8597

== ENCOUNTER 2025-04-01 09:09 | Day surgery (SDC) | payer OTHER, SELFPAY ==
[2025-04-01 09:19] VITALS: BMI 38.0
[2025-04-01 09:25] VITALS: BP 123/94; PULSE 77; RESP 18; TEMP 36.1; O2SAT 96
--- NOTE | 2025-04-01 10:09 | ANES.PREANE2 ---
Pre-Anesthetic Assessment Height/Weight: Height 1.83 m Weight 127.006 kg Operation Date: 04/01/25 10:45 Proposed Procedures p Colonoscopy 33097 G0121 Z12.11(Not Applicable) - Jaya Bynum MD Familial anesthetic complications: None Was Beta Foster taken within 24 hours: N/A Was Clonidine taken within 24 hours: N/A Last intake: Intake Last Liquid Date 03/31/25 Last Liquid Time 23:00 Last Solid Date 03/30/25 Last Solid Time 20:30 Social No alcohol and No tobacco Exam alert, oriented x 3, clear to auscultation bilaterally and regular rate & rhythm Airway Mallampati: Class IV Dentition: false Pulmonary Sleep Apnea CV/HEM Hypertension Anesthetic Plan ASA status: 3 Anesthesia: MAC Risk of > 500 ml blood loss (7ml/kg in children): No Medications/Allergies Home Medications ?Medication ?Instructions ?Recorded ?Confirmed ?Last Taken ?Type cetirizine 5 mg-pseudoephedrine ER 1 tab PO BID 09/10/24 03/26/25 03/31/25 History 120 mg tablet,extended release,12hr loratadine 10 mg tablet (Claritin) 10 mg PO DAILY PRN allergies 09/10/24 04/01/25 03/31/25 History losartan 50 mg tablet 50 mg PO DAILY 09/10/24 03/26/25 03/31/25 History doxycycline hyclate 100 mg tablet 100 mg PO BID 03/26/25 03/26/25 03/31/25 History Allergies Allergy/AdvReac Type Severity Reaction Status Date / Time No Known Allergies Allergy Verified 02/10/25 10:25 Current Medications Generic Name Dose Route Start Last Admin Trade Name Freq PRN Reason Stop Dose Admin Sodium Chloride 1,000 mls @ 15 mls/hr 04/01/25 09:14 04/01/25 09:44 Sodium Chloride 0.9% IV 04/02/25 09:13 15 mls/hr .Q24H PRN Administration COLONOSCOPY FLUIDS PFSH Anesthesia Social History Smoking and tobacco/nicotine status: never used tobacco/nicotine
--- NOTE | 2025-04-01 10:29 | W.PM.OPSFHP ---
Same Day Surgery H&P Indication for Procedure/HPI DATE OF PROCEDURE: April 01, 2025 CHIEF COMPLAINT/INDICATIONFOR SURGICAL PROCEDURE: screening colonoscopy PREOP DIAGNOSIS: screening colonoscopy PLANNED PROCEDURE: Operation Date: 04/01/25 10:45 Proposed Procedures p Colonoscopy 03001 G0121 Z12.11(Not Applicable) - Jaya Bynum MD Medications/Allergies* Home Medications ?Medication ?Instructions ?Recorded ?Confirmed ?Type cetirizine 5 mg-pseudoephedrine ER 1 tab PO BID 09/10/24 03/26/25 History 120 mg tablet,extended release,12hr loratadine 10 mg tablet (Claritin) 10 mg PO DAILY PRN allergies 09/10/24 04/01/25 History losartan 50 mg tablet 50 mg PO DAILY 09/10/24 03/26/25 History doxycycline hyclate 100 mg tablet 100 mg PO BID 03/26/25 03/26/25 History Allergies/Adverse Reactions Allergy/AdvReac Type Severity Reaction Status Date / Time No Known Allergies Allergy Verified 02/10/25 10:25 Current Medications: Generic Name Dose Route Start Last Admin Trade Name Freq PRN Reason Stop Dose Admin Sodium Chloride 1,000 mls @ 15 mls/hr 04/01/25 09:14 04/01/25 09:44 Sodium Chloride 0.9% IV 04/02/25 09:13 15 mls/hr .Q24H PRN Administration COLONOSCOPY FLUIDS Pertinent History/Comorbid Conditions* Social History Smoking and tobacco/nicotine status: never used tobacco/nicotine Pertinent Exam Findings alert, oriented x 3, clear to auscultation bilaterally, regular rate & rhythm and procedure specific exam findings abdomen soft, nt, nd Recommendations Risks and benefits of procedure reviewed and Patient/family agree to proceed Surgery/Procedure today Other Plans: I have explained the risks and benefits of a screening colonoscopy and the patient agrees to proceed. Patient is average for colon cancer. Patient understands that hemoccult is an alternative and still decides to proceed with colonoscopy. Had an extensive discussion with the patient. Answered all questions. Patient understands that the risks include a 1% risk of iatrogenic perforation and risk of aspiration. Coding Level of Care Code Acute Code for Chg Fwd
[2025-04-01 10:55] VITALS: BP 125/72; PULSE 76; RESP 18; TEMP 36.2; O2SAT 93
[2025-04-01 11:14] VITALS: BP 132/75; PULSE 78; RESP 18; O2SAT 96
--- NOTE | 2025-04-01 11:30 | ANE.PACU2 ---
Inpatient post-anesthesia follow up: Airway intact: Yes Vital signs: Temperature 97.2 F Pulse Rate 78 Respiratory Rate 18 Blood Pressure 132/75 Pulse Oximetry 96 Oxygen Delivery Me thod Room Air Oxygen Flow Rate Fraction of Inspir ed Oxygen Hydration adequate: Yes Nausea and vomiting: No Pain level: 1 Mental status: Baseline
== END 2025-04-01 10:33 | disposition home or self-care (01) ==
PROVIDERS: Visit Provider Student in an Organized Health Care Education/Training Program
PROC: 0DJD8ZZ Inspection of Lower Intestinal Tract, Via Natural or Artificial Opening Endoscopic (ICD-10-PCS; CPT 45378; principal; 2025-04-01 10:45)
DX: Z12.11 Encounter for screening for malignant neoplasm of colon (principal); D12.8 Benign neoplasm of rectum; I10 Essential (primary) hypertension; G47.30 Sleep apnea, unspecified
CPT/HCPCS: 45380; 88305; J2704; J7030; J9999